=== PATIENT | female | born 1995 | race Caucasian/White ===

== ENCOUNTER 2017-02-25 18:46 | Emergency (ER) | payer OTHER ==
[~2017-02-25] VITALS: Ht 160 cm; Wt 114.9 kg
[~2017-02-25 18:46] MED LIST: ADVAIR 250/501 DISK IH; ALBUTEROL17 GM IH; AMOXICILLIN500 MG PO; AZELASTINE137 MCG/0. BOTH NARES; BENADRYL25 MG PO; BUSPAR10 MG PO; FLUOXETINE HCL20 MG PO; FLUOXETINE HCL40 MG PO; LORATADINE10 M2 PO; MELATONIN10 M1 PO; MONTELUKAST SOD10 MG PO; MOTRIN600 MG PO; OMEPRAZOLE20 MG PO; PROZAC40 MG PO; TUMS SMOOTHIES300 MG PO; TYLENOL WITH C1 EACH PO; VENTOLIN HFA18 GM IH
[2017-02-25 19:18] LABS: HEMATOCRIT 41.9 % (36.0-46.0); MCH 25.9 PG (29.0-34.0); MCHC 32.9 G/DL (30.0-36.0); MCV 78.8 FL (83-99); PLATELET COUNT 511 K/uL (156-360); RBC DIS.WIDTH-CV 14.2 % (11.8-14.6); RBC DIS.WIDTH-SD 40.3 % (39-53); RED BLOOD COUNT 5.32 M/uL (3.80-5.20); WHITE BLOOD COUNT 16.7 K/uL (4.1-10.2)
[2017-02-25 19:35] LABS: CHLORIDE 104 mEq/L (99-109); SODIUM 139 mEq/L (136-147)
[2017-02-25 19:37] LABS: GLUCOSE 116 mg/dL (70-99)
[2017-02-25 19:38] LABS: ANION GAP 13 MEQ/L (2-14)
[2017-02-25 19:41] LABS: GFR ESTIMATE (CALCULATED) > 59 mL/min/; UREA NITROGEN (BUN) 17 mg/dL (9-23)
[2017-02-25] MEDS ORDERED: ACETAMINOPHEN-1 EAC1 PO (20:13)
[2017-02-25] MEDS ORDERED: PREDNISONE10 MG PO (20:14)
[2017-02-25] MEDS ORDERED: ALBUTEROL2.5 MG/3 M IH (20:14)
[2017-02-25 21:14] VITALS: BP 137/89
== END 2017-02-25 21:15 | disposition home or self-care (01) ==
LOC: EME 18:46
DX: R05 Cough (principal); K21.9 Gastro-esophageal reflux disease without esophagitis; J45.909 Unspecified asthma, uncomplicated
CPT/HCPCS: 71020; 80048; 85027; 99281; 99284

== ENCOUNTER 2017-05-01 15:59 | Inpatient (IN) | payer OTHER ==
[~2017-05-01] VITALS: Ht 160 cm; Wt 107.5 kg
[~2017-05-01 15:59] MED LIST changes: +ACETAMINOPHEN-1 EAC1 PO; +ALBUTEROL2.5 MG/3 M IH; +PREDNISONE10 MG PO
[2017-05-01 16:32] LABS: HEMATOCRIT 42.5 % (36.0-46.0); MCH 25.8 PG (29.0-34.0); MCV 80.6 FL (83-99); MEAN PLAT.VOLUME 9.1 uM^3 (9.5-12.4); PLATELET COUNT 424 K/uL (156-360); RBC DIS.WIDTH-CV 13.7 % (11.8-14.6); RED BLOOD COUNT 5.27 M/uL (3.80-5.20); WHITE BLOOD COUNT 10.3 K/uL (4.1-10.2)
[2017-05-01 16:40] LABS: CHLORIDE 104 mEq/L (99-109); POTASSIUM 3.6 mEq/L (3.7-5.4); SODIUM 141 mEq/L (136-147)
[2017-05-01 16:42] LABS: GLUCOSE 73 mg/dL (70-99)
[2017-05-01 16:43] LABS: ANION GAP 12 MEQ/L (2-14)
[2017-05-01 16:45] LABS: SERUM ETHYL ALCOHOL < 10 mg/dL
[2017-05-01 16:46] LABS: GFR ESTIMATE (CALCULATED) > 59 mL/min/
[2017-05-01 16:47] LABS: UREA NITROGEN (BUN) 15 mg/dL (9-23)
[2017-05-01 16:55] LABS: QUANTITATIVE HCG < 4.0 MIU/ML
[2017-05-01 17:03] LABS: AMPHETAMINE NEGATIVE (500 ng/mL); BARBITURATES NEGATIVE (200 ng/mL); BENZODIAZEPINES PRESUMPTIVE POSITIVE (150 ng/mL); COCAINE NEGATIVE (150 ng/mL); INTERNAL CONTROLS VALID? YES; METHADONE NEGATIVE (200 ng/mL); METHAMPHETAMINE NEGATIVE (500 ng/mL); OPIATES (MORPHINE) NEGATIVE (100 ng/mL); OXYCODONE NEGATIVE (100 ng/mL); PHENCYCLIDINE NEGATIVE (25 ng/mL); PROPOXYPHENE NEGATIVE (300 ng/mL); THC CANNABINOIDS NEGATIVE (50 ng/mL); TRICYCLIC ANTIDEPRESSANTS PRESUMPTIVE POSITIVE (300 ng/mL)
[2017-05-01 17:04] LABS: ADD MEDTOX COMMENT Y
[2017-05-01] MEDS ORDERED: AMITRIPTYLINE H10 MG PO (17:14)
[2017-05-01] MEDS ORDERED: ZIPRASIDONE HCL40 MG PO (17:14)
[2017-05-01] MEDS ORDERED: CETIRIZINE HCL10 M2 PO (17:15)
[2017-05-01] MEDS ORDERED: ZOLPIDEM TARTRA10 MG PO (17:15)
[2017-05-01] MEDS ORDERED: ATARAX,VISTARIL50 MG PO (17:16)
[2017-05-01 17:33] LABS: BENZODIAZEPINES QUANT VALUE 0 NG/ML; BENZODIAZEPINES, URINE SCREEN Negative (200 ng/mL)
[2017-05-01] MEDS ORDERED: FLUOXETINE HCL20 MG PO (19:22)
[2017-05-01] MEDS ORDERED: BUSPAR15 MG PO (19:22)
[2017-05-01] MEDS ORDERED: VENTOLIN HFA18 GM IH (19:24)
[2017-05-02 01:43] VITALS: BP 127/84
[2017-05-02 08:07] VITALS: BP 113/66
[2017-05-02 16:30] VITALS: BP 115/76
[2017-05-03 07:46] VITALS: BP 117/74
[2017-05-03 15:26] VITALS: BP 118/66
[2017-05-04 07:58] VITALS: BP 109/58
[2017-05-04 15:55] VITALS: BP 124/74
[2017-05-05 07:52] VITALS: BP 117/56
[2017-05-05 15:35] VITALS: BP 133/63
[2017-05-06 07:25] VITALS: BP 114/56
[2017-05-06 16:19] VITALS: BP 112/56
[2017-05-07 07:30] VITALS: BP 113/71
[2017-05-07 15:30] VITALS: BP 108/53
[2017-05-08 07:40] VITALS: BP 131/79
[2017-05-08] MEDS ORDERED: QUETIAPINE FUMA25 MG PO (09:35)
[2017-05-08] MEDS ORDERED: ZIPRASIDONE HCL20 MG PO (09:35)
[2017-05-08] MEDS ORDERED: TRAZODONE HCL50 MG PO (09:35)
[2017-05-08] MEDS ORDERED: FLUOXETINE HCL10 MG PO (09:35)
[2017-05-08] MEDS ORDERED: CLONAZEPAM0.5 MG PO ×2 (09:35→09:38)
== END 2017-05-08 13:00 | disposition home or self-care (01) | DRG 885 ==
LOC: EME 15:59 → EDOF 18:25 → 1WEST 18:25
DX: F33.2 Major depressive disorder, recurrent severe without psychotic features (principal); F41.1 Generalized anxiety disorder; F60.3 Borderline personality disorder; G47.00 Insomnia, unspecified; K21.9 Gastro-esophageal reflux disease without esophagitis; R45.851 Suicidal ideations; Z91.5 Personal history of self-harm; F60.6 Avoidant personality disorder; E66.9 Obesity, unspecified; Z59.1 Inadequate housing
CPT/HCPCS: 80048; 84702; 84999; 85027; 90839; 94760; 97150 GO; 97166 GO; 99202; 99281; 99285; G0480; Q0177

== ENCOUNTER 2017-08-30 13:43 | Emergency (ER) | payer OTHER ==
[~2017-08-30] VITALS: Ht 160 cm; Wt 119.7 kg
[~2017-08-30 13:43] MED LIST changes: +AMITRIPTYLINE H10 MG PO; +ATARAX,VISTARIL50 MG PO; +BUSPAR15 MG PO; +CETIRIZINE HCL10 M2 PO; +CLONAZEPAM0.5 MG PO; +FLUOXETINE HCL10 MG PO; +QUETIAPINE FUMA25 MG PO; +TRAZODONE HCL50 MG PO; +ZIPRASIDONE HCL20 MG PO; +ZIPRASIDONE HCL40 MG PO; +ZOLPIDEM TARTRA10 MG PO
[2017-08-30] MEDS ORDERED: MEDROL DOSEPAK4 MG PO (16:02)
[2017-08-30] MEDS ORDERED: MOTRIN600 MG PO (16:02)
[2017-08-30 16:16] VITALS: BP 127/79
== END 2017-08-30 16:20 | disposition home or self-care (01) ==
LOC: EME 13:43
DX: J02.9 Acute pharyngitis, unspecified (principal); J04.0 Acute laryngitis; K21.9 Gastro-esophageal reflux disease without esophagitis; J45.909 Unspecified asthma, uncomplicated
CPT/HCPCS: 99281; 99283

== ENCOUNTER 2018-03-02 19:47 | Inpatient (IN) | payer OTHER ==
[~2018-03-02] VITALS: Ht 160 cm; Wt 118.4 kg
[~2018-03-02 19:47] MED LIST changes: +MEDROL DOSEPAK4 MG PO
[2018-03-02 20:44] LABS: AMPHETAMINE NEGATIVE (500 ng/mL); BARBITURATES NEGATIVE (200 ng/mL); BENZODIAZEPINES PRESUMPTIVE POSITIVE (150 ng/mL); BUPRENORPHINE NEGATIVE (10 ng/mL); COCAINE NEGATIVE (150 ng/mL); METHADONE NEGATIVE (200 ng/mL); METHAMPHETAMINE NEGATIVE (500 ng/mL); OPIATES (MORPHINE) NEGATIVE (100 ng/mL); OXYCODONE NEGATIVE (100 ng/mL); PHENCYCLIDINE NEGATIVE (25 ng/mL); PROPOXYPHENE NEGATIVE (300 ng/mL); THC CANNABINOIDS NEGATIVE (50 ng/mL); TRICYCLIC ANTIDEPRESSANTS PRESUMPTIVE POSITIVE (300 ng/mL)
[2018-03-02 21:05] LABS: HEMATOCRIT 39.4 % (36.0-46.0); HEMOGLOBIN 13.1 G/DL (11.9-15.5); MCH 26.3 PG (29.0-34.0); MCHC 33.2 G/DL (30.0-36.0); MCV 79.1 FL (83-99); PLATELET COUNT 468 K/uL (156-360); RBC DIS.WIDTH-CV 13.5 % (11.8-14.6); RBC DIS.WIDTH-SD 38.9 % (39-53); RED BLOOD COUNT 4.98 M/uL (3.80-5.20); WHITE BLOOD COUNT 10.8 K/uL (4.1-10.2)
[2018-03-02 21:09] LABS: BENZODIAZEPINES, URINE SCREEN Negative (200 ng/mL)
[2018-03-02 21:17] LABS: CHLORIDE 107 mEq/L (99-109); SODIUM 140 mEq/L (136-147)
[2018-03-02 21:19] LABS: GLUCOSE 93 mg/dL (70-99)
[2018-03-02 21:22] LABS: SERUM ETHYL ALCOHOL < 10 mg/dL
[2018-03-02 21:23] LABS: CREATININE 0.7 mg/dL (0.6-1.3); GFR ESTIMATE (CALCULATED) > 59 mL/min/; UREA NITROGEN (BUN) 12 mg/dL (9-23)
[2018-03-03 00:15] VITALS: BP 119/78
[2018-03-03] MEDS ORDERED: JUNEL FE 1.5-31 EACH PO (00:23)
[2018-03-03 04:16] LABS: APPEARANCE CLOUDY ((CLEAR)); BILIRUBIN NEGATIVE; BLOOD NEGATIVE; COLOR YELLOW ((YELLOW)); GLUCOSE (STRIP) NEGATIVE; KETONES NEGATIVE; LEUKOCYTES LARGE; NITRITE NEGATIVE; PROTEIN (STRIP) 30; SPECIFIC GRAVITY 1.024 (1.000-1.030); UROBILINOGEN 0.2 MG/DL (0.2-1.0)
[2018-03-03 04:20] LABS: BACTERIA RARE /HPF; EPITHELIAL CELLS 2+ /HPF; MUCUS TRACE /LPF; RED BLOOD CELLS 0-5 /HPF (0-5); UCUL ADDED? NO; WHITE BLOOD CELLS 0-5 /HPF (0-5)
[2018-03-03 07:40] VITALS: BP 123/67
[2018-03-03] MEDS ORDERED: KLONOPIN0.5 M1 PO (07:52)
[2018-03-03] MEDS ORDERED: GEODON80 MG PO (07:53)
[2018-03-03] MEDS ORDERED: SEROQUEL100 MG PO (07:53)
[2018-03-03] MEDS ORDERED: DESYREL100 MG PO (07:54)
[2018-03-03 15:51] VITALS: BP 101/58
[2018-03-04 07:50] VITALS: BP 103/63
[2018-03-04 15:44] VITALS: BP 99/51
[2018-03-05 09:44] VITALS: BP 105/58
[2018-03-05 16:05] VITALS: BP 110/60
[2018-03-06 10:07] VITALS: BP 98/54
[2018-03-06 16:44] VITALS: BP 114/57
[2018-03-07 08:50] VITALS: BP 111/59
[2018-03-08 07:56] VITALS: BP 102/65
[2018-03-08] MEDS ORDERED: INDERAL10 MG PO (09:00)
[2018-03-08] MEDS ORDERED: SEROQUEL300 MG PO (09:00)
[2018-03-08] MEDS ORDERED: BUPROPION XL150 MG PO (09:00)
== END 2018-03-08 10:38 | disposition home or self-care (01) | DRG 885 ==
LOC: EME 19:47 → EDOF 22:14 → 1WEST 22:15 → ENRESERV 23:27 → 1WEST 03-03 00:07
PROVIDERS: Emergency Medicine
DX: F33.2 Major depressive disorder, recurrent severe without psychotic features (principal); F60.3 Borderline personality disorder; F41.1 Generalized anxiety disorder; F40.10 Social phobia, unspecified; S50.811A Abrasion of right forearm, initial encounter; X78.8XXA Intentional self-harm by other sharp object, initial encounter; E66.9 Obesity, unspecified; K21.9 Gastro-esophageal reflux disease without esophagitis; J45.909 Unspecified asthma, uncomplicated; Z23 Encounter for immunization
CPT/HCPCS: 80048; 81003; 81025; 84999; 85027; 90839; 97150 GO; 97165 GO; 99202; 99281; 99285; G0480